=== PATIENT | female | born 1955 | race Caucasian/White ===

== ENCOUNTER 2017-12-27 06:24 | Day surgery (SDC) | payer BC ==
[~2017-12-27 06:24] MED LIST: Buffered Lidocaine 0.9% SYRIN* 5 ML/SYR SYRINGE INTRADERM ONE; Dexamethasone IV* 4 MG/ML 1 ML (4 MG) IV SLOW PU ONE; Famotidine IV* 10 MG/ML 2 ML (20 mg) IV ONE; Scopolamine 1.5 mg* PATCH TRANSDERM ONE
[2017-12-27] MEDS ORDERED: Dexamethasone IV* 4 MG/ML 1 ML (4 MG) ONE (06:36)
[2017-12-27] MEDS ORDERED: Scopolamine 1.5 mg* PATCH ONE (06:36)
[2017-12-27] MEDS ORDERED: Famotidine IV* 10 MG/ML 2 ML (20 mg) ONE (06:36)
[2017-12-27] MEDS ORDERED: ceFAZolin 2 GM PREMIX in ORs 2 GM/50 ML BAG IVPB ONE (06:37)
[2017-12-27] MEDS ORDERED: fentaNYL* 50 MCG/ML 2 ML VIAL (100 MCG VIAL) ONE (06:50)
[2017-12-27] MEDS ORDERED: Midazolam* 1 MG/ML 5 ML VIAL (5 MG) ONE (06:50)
[2017-12-27] MEDS ORDERED: Lidocaine 2% PF * 5 ML VIAL ONE (06:51)
[2017-12-27] MEDS ORDERED: Propofol* 10 MG/ML 20 ML BTL IV PUSH ONE (06:51)
[2017-12-27] MEDS ORDERED: Bupivacaine 0.5% PF 10 ML VIAL INJ ONE (07:16)
[2017-12-27] MEDS ORDERED: ROPIVACAINE 5 MG/ML 30 ML BTL (0.5%) ONE ×2 (07:20→11:11)
[2017-12-27] MEDS ORDERED: DiMENhydriNATE IV* 50 MG/ML VIAL IV PUSH PRN (08:54)
[2017-12-27] MEDS ORDERED: fentaNYL* 50 MCG/ML 2 ML VIAL (100 MCG VIAL) IV PRN (08:54)
[2017-12-27] MEDS ORDERED: Naloxone* 0.4 MG/ML 1 ML VIAL IV PRN (08:54)
[2017-12-27] MEDS ORDERED: HYDROcodone/ACETAMIN 5-325 MG* 1 TAB PO PRN (08:54)
[2017-12-27] MEDS ORDERED: oxyCODONE/Acetamin 5/325 MG* TAB PO PRN (08:54)
[2017-12-27] MEDS ORDERED: Midazolam* 1 MG/ML 2 ML VIAL (2 MG) ONE ×2 (08:56→09:37)
[2017-12-27] MEDS ORDERED: Ondansetron INJ* 2 MG/ML VIAL ONE (09:31)
[2017-12-27] MEDS ORDERED: Labetalol IV* 5 MG/ML 20 ML VIAL ONE (11:52)
[2017-12-27] MEDS: Labetalol IV* 5 MG/ML 20 ML VIAL IV PUSH PRN ×2 (11:53→12:04)
[2017-12-27] MEDS ORDERED: oxyCODONE/Acetamin 5/325 MG* TAB ONE (13:40)
[2017-12-27 13:47] VITALS: BP 151/91
--- NOTE | 2017-12-28 03:42 | OP ---
DATE OF OPERATION: 12/27/17 - 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 OPERATIVE PROCEDURE: Left total ankle replacement with the right medical infinity system, size 4 tibia, size 3 talus, 9 mm poly. DESCRIPTION OF PROCEDURE: The patient was taken to the operating room where longitudinal incision was made in a standard fashion over the anterior ankle. We explored the interval medial to the neurovascular bundle, but lateral to the anterior tibialis. The ankle joint was exposed medial and lateral and Rodriges retractor was placed. We used a gutter rotational guide and then an intramedullary anterior posterior guide to locate our guide pins along the anterior tibial crest distally. The longitudinal alignment guide was then placed with a pin proximally at the tibial tubercle. We then used a distal cutting guide to locate approximately where we wanted to establish the new joint line for the prosthesis and also appropriate sizing in terms of medial lateral resection of tibia and the talar body cut. Once we established satisfactory positioning, these cutting jigs were fixed with pins and then we cut away the distal tibia and the top cut on the talus. These bone cuts were removed without difficulty using a small osteotome. We then sized the tibia and the talus with templates and a temporary poly insert and looked at our cuts on the image intensifier. The talar component appeared to be somewhat undersized at this point and we knew we had enough bone at the medial malleolus to enlarge the size of the tibia. So, we recut the tibia now to a size 3 by removing mainly bone along the medial malleolus and then a trial was performed with the 3 , and we felt that still there was lack of significant centering of the tibial component and there was more medial malleolus bone, this could be used to better anchor a larger prosthesis, so a size 4 was chosen and we recut this with a distal tibial sizing block. We then prepared the talar component with sizing for #3, the posterior Chamfer cut was made as well as the anterior reaming guide. A trial talar cap was then placed size 3 with some distraction of the joint using a #8 size poly. We felt that the posterior Chamfer cut was not quite aggressive enough and so this was recut more or less free hand to allow better fitting of the anterior and posterior Chamfer. Finally, we established the nolan holes for the pegs of the tibia and the talar component. Final trial was then performed and we placed a # 4 tibia with the porous coating, driving this into place at appropriate position on the tibia. The talus component as well #[address] seating the pegs satisfactorily and then a #9 mm thickness poly was chosen to give good joint distraction and tension within the joint. We then irrigated thoroughly closing the anterior retinaculum with interrupted 2 -0 Vicryl sutures, subcutaneous sutures of 2-0 Vicryl and nat for the skin. A compression dressing plaster splint was applied. [id number]/[facility] #: [id number] JASON
--- NOTE | 2017-12-28 07:57 | RAD ---
CPT II Codes: G9500 INDICATION: Posttraumatic osteoarthritis of the left ankle TECHNIQUE: Intraoperative fluoroscopy was provided during instillation of left ankle arthroplasty. FINDINGS: 4 spot films depict instillation of a left ankle prosthetic joint. Fluoroscopy time: 142 seconds IMPRESSION: As above.
[2017-12-30] MEDS ORDERED: Scopolamine PATCH Remove* 1 NOTE MISC PATCH OFF ONE (06:00)
== END 2017-12-27 14:32 | disposition home or self-care (01) ==
LOC: OR 06:24
PROVIDERS: ATTEND Orthopaedic Surgery
DX: M19.172 Post-traumatic osteoarthritis, left ankle and foot (principal); E78.5 Hyperlipidemia, unspecified; J45.909 Unspecified asthma, uncomplicated
CPT/HCPCS: 76000; A9270-GY; C1713; C1776; J0690; J1100; J2250; J2405; J2704; J2795; J3010